=== PATIENT | female | born 1935 | race Caucasian/White ===

== ENCOUNTER 2019-09-29 09:19 | Outpatient (RCR) | payer MEDICARE, BC | END 2019-10-08 14:12 | LOC: OPPGERO 09:19 | DX: F31.9 Bipolar disorder, unspecified (principal); F41.8 Other specified anxiety disorders; Z63.4 Disappearance and death of family member; Z62.810 Personal history of physical and sexual abuse in childhood ==

== ENCOUNTER 2019-10-11 08:52 | Outpatient (RCR) | payer MEDICARE, BC | END 2019-11-08 16:12 | disposition home or self-care (01) | LOC: OPPGERO 08:52 | DX: F31.9 Bipolar disorder, unspecified (principal); F41.1 Generalized anxiety disorder; Z62.810 Personal history of physical and sexual abuse in childhood; I10 Essential (primary) hypertension; Z79.899 Other long term (current) drug therapy; Z63.4 Disappearance and death of family member ==

== ENCOUNTER 2019-11-09 09:27 | Outpatient (RCR) | payer MEDICARE, BC | END 2019-12-08 17:03 | disposition still patient (30) | LOC: OPPGERO 09:27 | DX: F31.4 Bipolar disorder, current episode depressed, severe, without psychotic features (principal); F41.1 Generalized anxiety disorder; Z62.810 Personal history of physical and sexual abuse in childhood; M41.9 Scoliosis, unspecified; M48.00 Spinal stenosis, site unspecified; I10 Essential (primary) hypertension; E03.9 Hypothyroidism, unspecified; Z63.5 Disruption of family by separation and divorce; Z79.899 Other long term (current) drug therapy ==

== ENCOUNTER 2019-12-09 14:33 | Outpatient (RCR) | payer MEDICARE, BC | END 2020-01-07 14:28 | LOC: OPPGERO 14:33 | DX: F31.4 Bipolar disorder, current episode depressed, severe, without psychotic features (principal); F41.1 Generalized anxiety disorder; M48.00 Spinal stenosis, site unspecified; E03.9 Hypothyroidism, unspecified; I10 Essential (primary) hypertension; Z62.810 Personal history of physical and sexual abuse in childhood; Z63.5 Disruption of family by separation and divorce; Z79.899 Other long term (current) drug therapy; Z87.39 Personal history of other diseases of the musculoskeletal system and connective tissue ==

== ENCOUNTER 2020-01-10 09:05 | Outpatient (RCR) | payer MEDICARE, BC | END 2020-02-07 16:12 | disposition home or self-care (01) | LOC: OPPGERO 09:05 | DX: F31.9 Bipolar disorder, unspecified (principal); F41.1 Generalized anxiety disorder; Z63.4 Disappearance and death of family member ==